=== PATIENT | male | born 1985 | race Caucasian/White ===

== ENCOUNTER 2016-11-17 13:29 | Emergency (ER) | payer OTHER ==
[~2016-11-17] VITALS: Ht 182.8 cm; Wt 70.3 kg
[~2016-11-17 13:29] MED LIST: ANAPROX DS550 MG PO; CLINDAMYCIN150 MG PO; FLEXERIL10 MG PO; HYDROCODONE BIT1 T11 PO; LIDOCAINE HCL100 M1 MM; MOTRIN800 MG PO; NAPROSYN500 MG PO; NKHM; Peridex 473 ML473 ML PO; ZANTAC150 MG PO; ZOFRAN ODT4 MG SL; ZYRTEC10 MG PO
[2016-11-17 13:40] VITALS: BP 166/84
== END 2016-11-17 14:31 | disposition home or self-care (01) ==
LOC: ED 13:29
DX: S61.217A Laceration without foreign body of left little finger without damage to nail, initial encounter (principal); W45.8XXA Other foreign body or object entering through skin, initial encounter; Y93.89 Activity, other specified; Y92.009 Unspecified place in unspecified non-institutional (private) residence as the place of occurrence of the external cause; Y99.9 Unspecified external cause status

== ENCOUNTER 2017-06-06 08:50 | Emergency (ER) | payer OTHER ==
[~2017-06-06] VITALS: Ht 182.8 cm; Wt 68.0 kg
[2017-06-06 08:57] VITALS: BP 101/60
[2017-06-06] MEDS ORDERED: Peridex 473 ML473 ML PO (09:03)
[2017-06-06] MEDS ORDERED: CLINDAMYCIN150 MG PO (09:03)
[2017-06-06] MEDS ORDERED: NAPROSYN500 MG PO (09:03)
== END 2017-06-06 10:13 | disposition home or self-care (01) ==
LOC: ED 08:50
DX: K04.7 Periapical abscess without sinus (principal); R22.9 Localized swelling, mass and lump, unspecified

== ENCOUNTER 2018-03-11 17:08 | Emergency (ER) | payer OTHER ==
[~2018-03-11] VITALS: Wt 70.3 kg
[2018-03-11 17:08] VITALS: BP 137/80
[2018-03-11] MEDS ORDERED: PENICILLIN-VK500 MG PO (17:45)
== END 2018-03-11 17:53 | disposition home or self-care (01) ==
LOC: ED 17:08
DX: K03.81 Cracked tooth (principal); K02.9 Dental caries, unspecified

== ENCOUNTER 2018-04-28 12:57 | Inpatient (IN) | payer OTHER ==
[~2018-04-28] VITALS: Ht 182.8 cm; Wt 65.8 kg
--- NOTE | ~2018-04-28 | EKG ---
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
[~2018-04-28 12:57] MED LIST changes: +PENICILLIN-VK500 MG PO
[2018-04-28 13:00] VITALS: BP 138/95
[2018-04-28 13:46] LABS: BILIRUBIN NEGATIVE (NEGATIVE); BLOOD NEGATIVE (NEGATIVE); CLARITY CLEAR (CLEAR); COLOR YELLOW (YELLOW); GLUCOSE NEGATIVE (NEGATIVE); KETONE NEGATIVE (NEGATIVE); LEUKO ESTERASE NEGATIVE (NEGATIVE); NITRITE NEGATIVE (NEGATIVE); PH 6.5 (5.0-9.0); SPECIFIC GRAVITY <= 1.005 (1.005-1.030)
[2018-04-28 13:49] LABS: BASO # 0.1 10*3/uL (0.0-0.1); BASO % 0.6 % (0.0-1.0); EOS # 0.4 10*3/uL (0.0-0.4); EOS % 3.7 % (1.0-4.0); HEMATOCRIT 38.8 % (42.0-52.0); HEMOGLOBIN 12.9 g/dl (14.0-18.0); LYMPH # 2.7 10*3/uL (1.3-4.4); LYMPH % 23.3 % (27.0-41.0); MEAN CELL VOLUME 91.1 fl (80.0-94.0); MEAN CORPUSCULAR HGB 30.3 pg (27.0-31.0); MEAN CORPUSCULAR HGB CONC 33.2 g/dl (33.0-37.0); MEAN PLATELET VOLUME 10.5 fl (9.6-12.3); MONO # 0.8 10*3/uL (0.1-1.0); MONO % 6.8 % (3.0-9.0); NEUT # 7.5 10*3/uL (2.3-7.9); NEUT % 65.3 % (47.0-73.0); PLATELET COUNT AUTOMATED 220 10*3/uL (130-400); RED BLOOD COUNT 4.26 10*6/uL (4.50-5.90); WHITE BLOOD COUNT 11.5 10*3/uL (4.8-10.8)
[2018-04-28 13:57] LABS: BACTERIA TRACE; MUCOUS TRACE; URINE AMPHETAMINES < 1000 (1000ng/ml); URINE BARBITURATES < 200 (200ng/ml); URINE BENZODIAZEPINES < 200 (200ng/ml); URINE CANNABINOIDS (THC) > 50 (50ng/ml); URINE COCAINE > 300 (300ng/ml); URINE METHADONE < 300 (300ng/ml); URINE OPIATES > 300 (300ng/ml)
[2018-04-28 13:58] LABS: RBC 0-2 rbc/hpf (0-2); WBC 0-2 wbc/hpf (0-5)
[2018-04-28 14:00] LABS: URINE PHENCYCLIDINE < 25 (25ng/ml)
[2018-04-28 14:06] LABS: ALBUMIN 3.9 gm/dl (3.1-4.5); ALKALINE PHOSPHATASE 54 U/L (45-117); BUN 9 mg/dl (7-24); CHLORIDE 105 mmol/L (98-107); CREATININE 0.86 mg/dL (0.70-1.30); POTASSIUM 3.7 mmol/L (3.5-5.1); SGOT/AST 16 IU/L (3-35); SGPT/ALT 15 U/L (12-78); SODIUM 139 mmol/L (136-145); TOTAL PROTEIN 7.1 gm/dL (6.4-8.2)
[2018-04-28 14:12] LABS: ETHYL ALCOHOL < 3.0 mg/dl (<3)
[2018-04-28 14:43] VITALS: BP 145/83
[2018-04-28 16:00] VITALS: BP 123/73
[2018-04-28 20:00] VITALS: BP 130/68
[2018-04-29] VITALS: BP 127/67
[2018-04-29 08:00] VITALS: BP 116/68
[2018-04-29 12:00] VITALS: BP 146/76
[2018-04-29 16:00] VITALS: BP 147/77
[2018-04-29 20:00] VITALS: BP 127/87
== END 2018-04-29 22:20 | disposition left against medical advice (07) | DRG 894 ==
LOC: ED 12:57 → EDHOLD 13:38 → 5E 13:38
PROVIDERS: Emergency Medicine; Internal Medicine
DX: F11.23 Opioid dependence with withdrawal (principal); D50.9 Iron deficiency anemia, unspecified; D72.820 Lymphocytosis (symptomatic); R73.9 Hyperglycemia, unspecified; Z53.21 Procedure and treatment not carried out due to patient leaving prior to being seen by health care provider; F12.10 Cannabis abuse, uncomplicated; F14.10 Cocaine abuse, uncomplicated; R07.89 Other chest pain; F41.9 Anxiety disorder, unspecified; Z72.0 Tobacco use; Z82.49 Family history of ischemic heart disease and other diseases of the circulatory system; Z83.3 Family history of diabetes mellitus; Z79.899 Other long term (current) drug therapy

== ENCOUNTER 2021-03-01 00:51 | Emergency (ER) | payer SELFPAY ==
[~2021-03-01] VITALS: Ht 177.8 cm; Wt 74.8 kg
[2021-03-01 00:56] VITALS: BP 169/95
== END 2021-03-01 01:54 ==
LOC: ED 00:51
DX: F15.10 Other stimulant abuse, uncomplicated (principal); F23 Brief psychotic disorder; F12.10 Cannabis abuse, uncomplicated; F14.10 Cocaine abuse, uncomplicated; Z90.49 Acquired absence of other specified parts of digestive tract

== ENCOUNTER 2021-11-28 06:58 | Emergency (ER) | payer SELFPAY ==
[~2021-11-28] VITALS: Wt 68.0 kg
[2021-11-28 07:06] VITALS: BP 117/70
[2021-11-28 08:00] LABS: BASO % 0.3 % (0.0-1.0); EOS % 0.3 % (1.0-4.0); HEMATOCRIT 40.8 % (42.0-52.0); LYMPH # 1.5 10*3/uL (1.3-4.4); MEAN CELL VOLUME 86.8 fl (80.0-94.0); MEAN CORPUSCULAR HGB 29.4 pg (27.0-31.0); MEAN CORPUSCULAR HGB CONC 33.8 g/dl (33.0-37.0); MEAN PLATELET VOLUME 10.4 fl (9.6-12.3); MONO # 0.9 10*3/uL (0.1-1.0); MONO % 10.2 % (3.0-9.0); NEUT # 6.4 10*3/uL (2.3-7.9); NEUT % 72.1 % (47.0-73.0); PLATELET COUNT AUTOMATED 196 10*3/uL (130-400); RED CELL DISTRI WIDTH 13.3 % (0-14.5); WHITE BLOOD COUNT 8.8 10*3/uL (4.8-10.8)
[2021-11-28 08:16] LABS: ALKALINE PHOSPHATASE 53 U/L (45-117); BUN 17 mg/dl (7-24); CHLORIDE 103 mmol/L (98-107); CREATININE 1.08 mg/dL (0.70-1.30); LIPASE 55 U/L (73-393); POTASSIUM 3.4 mmol/L (3.5-5.1); SGOT/AST 19 IU/L (3-35); SGPT/ALT 34 U/L (12-78); SODIUM 137 mmol/L (136-145); TOTAL PROTEIN 7.6 gm/dL (6.4-8.2)
[2021-11-28 08:19] LABS: ETHYL ALCOHOL < 3.0 mg/dl (<3)
[2021-11-28 09:25] LABS: BILIRUBIN Negative (Negative); BLOOD Negative (Negative); CLARITY Cloudy (Clear); COLOR Yellow (Yellow); GLUCOSE Trace (Negative); KETONE 2+ (Negative); LEUKO ESTERASE Negative (Negative); NITRITE Negative (Negative); PH 7.5 (4.5-8.0)
[2021-11-28 09:32] LABS: URINE AMPHETAMINES > 1000 (1000ng/ml); URINE BARBITURATES < 200 (200ng/ml); URINE BENZODIAZEPINES < 200 (200ng/ml); URINE CANNABINOIDS (THC) > 50 (50ng/ml); URINE COCAINE < 300 (300ng/ml); URINE METHADONE < 300 (300ng/ml); URINE OPIATES < 300 (300ng/ml)
[2021-11-28 09:36] LABS: EPITHELIAL CELLS 0-2; MUCOUS TRACE
[2021-11-28 09:42] LABS: URINE PHENCYCLIDINE < 25 (25ng/ml)
== END 2021-11-28 10:06 | disposition home or self-care (01) ==
LOC: ED 06:58
PROVIDERS: Emergency Medicine
DX: F19.10 Other psychoactive substance abuse, uncomplicated (principal); F17.200 Nicotine dependence, unspecified, uncomplicated; Z90.49 Acquired absence of other specified parts of digestive tract